=== PATIENT | female | born 1965 | race Caucasian/White ===

== ENCOUNTER 2019-10-20 07:38 | Emergency (ER) | payer OTHER, SELFPAY ==
[2019-10-20 08:12] LABS: Bilirubin Negative (Negative); Blood, Urine Large (Negative); Clarity Clear (Clear); Glucose, Urine (Dipstick) Negative (Negative); Leukocyte Negative (Negative); Nitrite Negative (Negative); Protein, Urine (Dipstick) Trace mg/dL (Neg-Trace); Urobilinogen 0.2 mg/dL (Less than 2)
[2019-10-20 08:17] LABS: Bacteria/HPF None Seen HPF (None Seen); Squamous Epithelial 0-3 HPF (0-3); WBC/HPF 0-3 HPF (0-3)
--- NOTE | 2019-10-20 09:04 | CT ---
Exam: Abdomen CT without contrast HISTORY: Fall. Pain. Trauma. COMPARISON: None FINDINGS: Abdomen CT: Lung bases: Incompletely evaluated moderate left-sided pneumothorax. Heart size: Normal heart size. No significant pericardial fluid Aorta: Visualized aorta has a normal caliber. Solid organs: Limited evaluation by the lack of IV contrast. Grossly no posttraumatic change or acute solid organ abnormality. Lymph nodes: No gastrohepatic, retrocrural or periportal lymphadenopathy Gallbladder: Unremarkable Mesentery: No mass, lymphadenopathy, free air or free fluid Kidneys: Bilaterally, no hydronephrosis, nephrolithiasis or perinephric fat stranding. Bilateral uret ers have a normal caliber. No hydroureter, periureteral fat stranding or ureterolithiasis. Alimentary canal: Visualized alimentary canal is unremarkable. Osseous structures: No lytic or blastic lesions IMPRESSION: 1. Incompletely evaluated left-sided pneumothorax. 2. Results study discussed with Dr. Ervin 10/20/2019 at 9:00 AM Code CR
--- NOTE | 2019-10-20 09:05 | RAD ---
Exam: CHEST 1 VIEW LEFT RIBS 3 VIEWS: HISTORY: Trauma. Fall. Pain. FINDINGS: CHEST 1 VIEW: Atherosclerosis and slight elongation of aorta. Normal cardiac silhouette. Pulmonary v essels and hilum are normal. Costophrenic angles are clear. Lungs are hyperinflated with chronic changes. There is a left-sided pneumothorax (approximately 35-40%). No significant mediastinal shift. LEFT RIB SERIES: No fracture, cortical irregularity or periosteal reaction. IMPRESSION: 1. No evidence of a left rib fracture. 2. 35-40% left-sided pneumothorax. Transcribed Date/Time: 10/20/2019 9:31 AM
[2019-10-20] MEDS ORDERED: Morphine 4 MG/ML VIAL ONE ×2 (09:52→11:39)
[2019-10-20] MEDS ORDERED: Promethazine HCl 25 MG/ML VIAL ONE (09:53)
[2019-10-20] MEDS ORDERED: Sodium Chloride 0.9% 250 ML 250 ML ONE (09:53)
--- NOTE | 2019-10-20 11:09 | RAD ---
Exam: CHEST 1 VIEW: HISTORY:Fall. Pain. Left-sided symptoms. Comparison: 10/20/2019 FINDINGS: Cardiac silhouette: Normal Aorta: Unremarkable Pulmonary vessels: Normal Costophrenic angles: Clear LUNGS: No masses or consolidation. Pneumothorax: Interval reexpansion of a previously noted left-sided pneumothorax. Interval placement of a smallbore left-sided chest tube with the distal tip oriented towards the upper left hemithorax. Osseous abnormalities: None IMPRESSION: Interval placement of a smallbore left-sided chest tube. Expansion of a previously noted left-sided p neumothorax. Transcribed Date/Time: 10/20/2019 11:12 AM
== END 2019-10-20 12:02 | disposition home or self-care (01) ==
LOC: NAV ERS 07:38
DX: S27.0XXA Traumatic pneumothorax, initial encounter (principal); S39.012A Strain of muscle, fascia and tendon of lower back, initial encounter; S20.212A Contusion of left front wall of thorax, initial encounter; F32.9 Major depressive disorder, single episode, unspecified; F17.210 Nicotine dependence, cigarettes, uncomplicated; Z79.01 Long term (current) use of anticoagulants; Z79.899 Other long term (current) drug therapy; W18.30XA Fall on same level, unspecified, initial encounter
CPT/HCPCS: 32551; 71045; 74150; 81003; 81015; 96361; 96374; 96375; 96376; J2270; J2550; J7050